=== PATIENT | female | born 1950 | race African-American/Black ===

== ENCOUNTER 2017-01-28 09:26 | Day surgery (SDC) | payer OTHER, MEDICAID ==
[~2017-01-28 09:26] MED LIST: AK-DILATE 2.5% OPHTH 1 DOSE OP ONE; ALPHAGAN-P OPHTH 1 DOSE AFFEYE ONE; CYCLOGYL 1% OPHTH 1 DOSE OP ONE; MYDRIACIL OPHTH 1 DOSE AFFEYE ONE; PROLENSA OPHTH 1 DOSE AFFEYE ONE; TETRACAINE 0.5% OPHTH 1 DOSE AFFEYE ONE; VIGAMOX 0.5% OPHTH 1 DOSE AFFEYE ONE
[2017-01-28] MEDS ORDERED: NS 500 ML IV 500 ML IV ONE (09:43)
[2017-01-28] MEDS ORDERED: TETRACAINE 0.5% OPHTH 1 DOSE AFFEYE ONE (12:32)
[2017-01-28] MEDS ORDERED: BETADINE OPHTH SOLN 5% EACHEYE ONE (12:32)
[2017-01-28] MEDS ORDERED: DUOVISC IO ONE ×2 (12:36→12:48)
[2017-01-28] MEDS ORDERED: XYLOCAINE-MPF 1% IJ ONE ×2 (12:36→12:48)
[2017-01-28] MEDS ORDERED: VIGAMOX 0.5% OPHTH 1 DOSE AFFEYE ONE ×2 (12:36→13:19)
[2017-01-28] MEDS ORDERED: ADRENALINE CHL INJ IJ ONE ×2 (12:36→12:48)
[2017-01-28] MEDS ORDERED: BSS OPHTH (PLAIN) 500 ML with VANCOMYCIN HCL 500 MG VIAL 25 MG, ADRENALINE CHL INJ 1 MG IR ONE ×6 (12:37)
[2017-01-28] MEDS ORDERED: VISCOAT 0.5 ML IO ONE (12:58)
[2017-01-28] MEDS ORDERED: MIOCHOL-E IO ONE (13:15)
[2017-01-28 14:51] VITALS: BP 176/88
== END 2017-01-28 13:45 | disposition home or self-care (01) ==
LOC: SURG1 09:26
PROVIDERS: ATTEND Ophthalmology
PROC: 08DK3ZZ Extraction of Left Lens, Percutaneous Approach (ICD-10-PCS; principal; 2017-01-28 15:30)
PROC: 08RK3JZ Replacement of Left Lens with Synthetic Substitute, Percutaneous Approach (ICD-10-PCS; principal; 2017-01-28 15:30)
DX: H25.12 Age-related nuclear cataract, left eye (principal); H25.042 Posterior subcapsular polar age-related cataract, left eye
CPT/HCPCS: A4217; J0170; J3370